=== PATIENT | female | born 1995 | race Caucasian/White ===

== ENCOUNTER 2017-11-05 15:13 | Emergency (ER) | payer BC, OTHER ==
[~2017-11-05] VITALS: Ht 170.2 cm; Wt 60.0 kg
[2017-11-05] MEDS ORDERED: HALOPERIDOL LACTATE 5 MG/ML AMP IM ONE (15:30)
[2017-11-05] MEDS ORDERED: SODIUM CHLORIDE 0.9% FLUSH 10 ML FLUSH IVF PRN (15:30)
[2017-11-05] MEDS ORDERED: LORazepam 2 MG/ML VIAL IV PUSH ONE (15:30)
[2017-11-05] MEDS ORDERED: diphenhydrAMINE HCL 50 MG/ML VIAL IV PUSH ONE (15:30)
[2017-11-05 15:40] VITALS: BP 147/82; PULSE 93; RESP 18; TEMP 98; O2SAT 98
[2017-11-05 15:45] VITALS: RESP 16; O2SAT 98
[2017-11-05 16:05] LABS: AUTOMATED NEUTROPHIL # 3.4 TH/MM3 (1.8-7.7); BASOPHIL % 0.2 % (0.0-2.0); EOSINOPHIL % 0.1 % (0.0-4.0); HEMATOCRIT 42.9 % (35.0-46.0); HEMOGLOBIN 14.7 GM/DL (11.6-15.3); LYMPH % 34.9 % (9.0-44.0); MEAN CELL VOLUME 87.9 FL (80.0-100.0); MEAN CORPUSCULAR HEMOGLOBIN 30.2 PG (27.0-34.0); MEAN CORPUSCULAR HGB CONC 34.4 % (32.0-36.0); MEAN PLATELET VOLUME 10.2 FL (7.0-11.0); MONO % 6.6 % (0.0-8.0); MONOCYTE # 0.4 TH/MM3 (0-0.9); NEUT % 58.2 % (16.0-70.0); PLATELET COUNT 162 TH/MM3 (150-450); RED BLOOD COUNT 4.88 MIL/MM3 (4.00-5.30); RED CELL DISTRIBUTION WIDTH 13.1 % (11.6-17.2); WHITE BLOOD COUNT 5.9 TH/MM3 (4.0-11.0)
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
[2017-11-05 16:13] LABS: PROTHROMBIN TIME - PATIENT 10.3 SEC (9.8-11.6)
[2017-11-05 16:37] LABS: BICARBONATE 20.3 MEQ/L (21.0-32.0); BLOOD UREA NITROGEN 7 MG/DL (7-18); CALCIUM 8.1 MG/DL (8.5-10.1); CHLORIDE 115 MEQ/L (98-107); CREATININE 0.66 MG/DL (0.50-1.00); GLOMERULAR FILTRATION RATE 111 ML/MIN (>89); GLUCOSE,RANDOM 85 MG/DL (74-106); SODIUM (NA) 145 MEQ/L (136-145)
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
[2017-11-05] MEDS ORDERED: TETANUS/DIPHTHERIA TOXOID ADULT 0.5 ML VIAL IM ONE (17:00)
[2017-11-05] MEDS ORDERED: LIDOCAINE 1%/EPINEPHrine 1:100,000 SOLN 20 ML VIAL INFIL ONE (17:15)
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
[2017-11-05] MEDS ORDERED: LIDOCAINE 1%/EPINEPHrine 1:100,000 SOLN 30 ML VIAL INFIL ONE (17:45)
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
[2017-11-05] MEDS ORDERED: IOHEXOL 350 MG/ML 10 ML VIAL (for RAD DIAG) IVCONTRAST ONE (17:48)
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
[2017-11-05 18:00] VITALS: BP 123/66; PULSE 108; RESP 14; O2SAT 99
--- NOTE | 2017-11-05 18:08 | PD ---
Data Data Last Documented VS Vital Signs Date Time Temp Pulse Resp B/P (MAP) Pulse Ox O2 Delivery O2 Flow Rate FiO2 11/05/17 15:45 16 98 Room Air 11/05/17 15:40 98.0 93 147/82 (103) Orders Orders Basic Metabolic Panel (Bmp) (11/05/17 15:27) Complete Blood Count With Diff (11/05/17 15:) Prothrombin Time / Inr (Pt) (11/05/17:) Act Partial Throm Time (Ptt) (11/05/17:) Type And Screen (11/05/17:) Alcohol (Ethanol) (11/05/17:) Beta Hcg (Quant/Titer) (11/05/17:) Chest, Single Ap (11/05/17:) Pelvis, Ap Only (Routine) (11/05/17:27) Ct Brain W/O Iv Contrast(Rout) (11/05/17:27) Ct Cerv Spine W/O Contrast (11/05/17:) Ct Abd/Pel W Iv Contrast(Rout) (11/05/17 15:27) Ct Thorax/ Chest W Iv Contrast (11/05/17 15:27) Ct Facial Bones W/O Iv Cont (11/05/17:) Iv Access Insert/Monitor (11/05/17:) Ecg Monitoring (11/05/17:) Oximetry (11/05/17:27) Oxygen Administration (11/05/17:27) Sodium Chloride 0.9% Flush (Ns Flush) (11/05/17 15:30) Drug Screen, Random Urine (11/05/17 15:27) Lorazepam Inj (Ativan Inj) (11/05/17 15:30) Haloperidol Inj (Haldol Inj) (11/05/17 15:30) Diphenhydramine Inj (Benadryl Inj) (11/05/17 15:30) Tetanus/Diphtheria Tox Adult (Tetanus/Di (11/05/17 17:00) Lidocai-Epi 1%-1:100,000 Inj (Xylocaine- (11/05/17 17:15) Lidocai-Epi 1%-1:100,000 Inj (Xylocaine- (11/05/17 17:45) Iohexol 350 Inj (Omnipaque 350 Inj) (11/05/17 17:48) Labs Laboratory Tests Test 11/05/17 15:45 11/05/17 15:50 White Blood Count 5.9 TH/MM3 Red Blood Count 4.88 MIL/MM3 Hemoglobin 14.7 GM/DL Hematocrit 42.9 % Mean Corpuscular Volume 87.9 FL Mean Corpuscular Hemoglobin 30.2 PG Mean Corpuscular Hemoglobin Concent 34.4 % Red Cell Distribution Width 13.1 % Platelet Count 162 TH/MM3 Mean Platelet Volume 10.2 FL Neutrophils (%) (Auto) 58.2 % Lymphocytes (%) (Auto) 34.9 % Monocytes (%) (Auto) 6.6 % Eosinophils (%) (Auto) 0.1 % Basophils (%) (Auto) 0.2 % Neutrophils # (Auto) 3.4 TH/MM3 Lymphocytes # (Auto) 2.0 TH/MM3 Monocytes # (Auto) 0.4 TH/MM3 Eosinophils # (Auto) 0.0 TH/MM3 Basophils # (Auto) 0.0 TH/MM3 CBC Comment DIFF FINAL Differential Comment Prothrombin Time 10.3 SEC Prothromb Time International Ratio 1.0 RATIO Activated Partial Thromboplast Time 21.9 SEC Blood Urea Nitrogen 7 MG/DL Creatinine 0.66 MG/DL Random Glucose 85 MG/DL Calcium Level 8.1 MG/DL Sodium Level 145 MEQ/L Potassium Level 3.3 MEQ/L Chloride Level 115 MEQ/L Carbon Dioxide Level 20.3 MEQ/L Anion Gap 10 MEQ/L Estimat Glomerular Filtration Rate 111 ML/MIN Human Chorionic Gonadotropin, Quant LESS THAN 1 MIU/ML Ethyl Alcohol Level 267 MG/DL Urine Opiates Screen NEG Urine Barbiturates Screen NEG Urine Amphetamines Screen NEG Urine Benzodiazepines Screen NEG Urine Cocaine Screen NEG Urine Cannabinoids Screen NEG MDM Medical Record Reviewed: Yes Supervised Visit with BETZAIDA: No Narrative Course This patient presents acutely intoxicated. She has a chin laceration which I was asked to repair. She verbally consents. Procedures Procedure Narrative LACERATION LOCATION: Chin LENGTH: 1.5 cm NUMBER OF STITCHES/SHARYN: 5 REPAIR: The area of the laceration was prepped with Betadine and sterilely draped. The laceration was infiltrated with 1% lidocaine with epinephrine. The wound was copiously irrigated and explored without evidence of foreign body , tendon injury or neurovascular injury. The wound was closed using 6-0 Prolene simple interrupted. This was a single layer repair. A sterile dressing was applied. The patient was advised to keep the dressing clean and dry. Patient tolerated the procedure well. Scripts No Active Prescriptions or Reported Meds Jc Monsalve Nov 05, 2017 18:08
[2017-11-05 19:36] VITALS: BP 117/61; PULSE 101; RESP 18; O2SAT 97
== END 2017-11-05 20:03 | disposition home or self-care (01) ==
LOC: NEPD 15:13
DX: S01.81XA Laceration without foreign body of other part of head, initial encounter (principal); F10.129 Alcohol abuse with intoxication, unspecified; S80.212A Abrasion, left knee, initial encounter; S50.812A Abrasion of left forearm, initial encounter; S50.811A Abrasion of right forearm, initial encounter; X58.XXXA Exposure to other specified factors, initial encounter; Z23 Encounter for immunization
CPT/HCPCS: 12011; 70450; 70486; 71045; 71260; 72125; 72170; 74177; 80048; 80307; 84702; 85025; 85610; 85730; 86850; 86900; 86901; 90471; 90714; 96372; 96374; 96375; 99285; J1200; J1630; J2060; Q9967